=== PATIENT | male | born 1955 | race Caucasian/White ===

== ENCOUNTER 2018-09-12 06:03 | Emergency (ER) | payer OTHER, SELFPAY ==
[2018-09-12 06:12] VITALS: BP 113/85; PULSE 104; RESP 20; TEMP 36.8; O2SAT 92; BMI 35.4
--- NOTE | 2018-09-12 06:30 | DI.RAD.S_ITS ---
PROCEDURE: XR CHEST 1V INDICATIONS: worsening cough TECHNIQUE: One view of the chest was acquired. COMPARISON: None. FINDINGS: Surgical changes and devices: None. Lungs and pleura: Lungs are mildly atelectatic due to reduced inspiration. No pleural effusions or pneumothorax. Mediastinum: Mediastinal contours appear normal. Heart size is normal. Bones and chest wall: No suspicious bony lesions. Overlying soft tissues appear unremarkable. IMPRESSION: Normal for age, source of current worsening cough symptoms is not seen. Reduced inspiration. Dictated by: Ehsan Morales M.D. on 09/12/2018 at 8:00 Approved by: Ehsan Morales M.D. on 09/12/2018 at 8:01
[2018-09-12] MEDS: predniSONE 20 MG TABLET 60 MG PO (07:09)
[2018-09-12 07:10] VITALS: PULSE 88; RESP 16; O2SAT 93
[2018-09-12] MEDS: ALBUTEROL/IPRATROPIUM 3 ML AMPUL INH (07:13)
[2018-09-12] MEDS: AZITHROMYCIN 250 MG TABLET 500 MG PO (07:30)
[2018-09-12 07:37] VITALS: BP 115/70; PULSE 95; RESP 15; O2SAT 93
--- NOTE | 2018-09-13 09:22 | ED_ITS ---
HPI - SOB/Dyspnea General Chief Complaint: Shortness of Breath/Dyspnea Stated Complaint: thinks he has bronchitis or pneumonia Time Seen by Provider: 09/12/18 06:11 Source: patient Mode of arrival: ambulatory Limitations: no limitations History of Present Illness Patient comes emergency department stating he is concerned that he may have bronchitis or pneumonia. He states his symptoms started a little over week ago as just a cold , but that his cough has gotten increasingly worse over the last few days. Patient uses a CPAP machine at night, and feels as though the pressures just pushing slam down further into his lungs. He states he has been coughing up a lot of phlegm which is clear to slightly yellow. He states he has been short of breath. No chest pain. No fevers or chills. No nausea or vomiting. Patient is otherwise healthy, and does not have any other lung problems. He is not a smoker, and quit smoking about 40 years ago. Related Data Home Medications Medication Instructions Recorded Confirmed alprazolam 0.25 mg PO Q8H #0 03/18/16 alprazolam 0.5 mg PO QHS #0 03/18/16 aspirin 81 mg PO QDAY #0 03/18/16 finasteride 5 mg PO QDAY #0 tab 03/18/16 lisinopril 40 mg PO QDAY #0 03/18/16 Previous Rx's Medication Instructions Recorded albuterol sulfate 2 puff INHALATION Q4-6H PRN #6.7 09/12/18 gram azithromycin [Zithromax Z-Tiago] See Label Instructions .ROUTE 09/12/18 .COMPLEX #6 tab Allergies Allergy/AdvReac Type Severity Reaction Status Date / Time Sulfa (Sulfonamide Allergy Severe SWELLING Unverified 11/18/17 12:11 Antibiotics) [SULFA (SULFONAMIDE ANTIBIOTICS)] Review of Systems Constitutional Denies chills, Denies fever(s), Denies lethargy and Denies weakness Eyes Denies change in vision, Denies eye discharge, Denies irritation and Denies loss of vision ENT Ears, Nose, Mouth, and Throat: Denies change in voice, Denies neck pain and Denies sore throat Cardiovascular Denies chest pain, Denies irregular heart rhythm, Denies lightheadedness, Denies palpitations, Reports dyspnea and Denies orthopnea Respiratory Reports cough, Reports dyspnea and Denies wheezing Gastrointestinal Gastrointestinal: Denies abdominal pain, Denies change in bowel habits, Denies diarrhea, Denies nausea and Denies vomiting Genitourinary Denies hematuria, Denies flank pain, Denies urinary incontinence and Denies urinary urgency Musculoskeletal Denies neck pain Integumentary/Breasts Denies pruritus, Denies erythema, Denies rash and Denies wounds Neurologic Denies confusion, Denies loss of vision and Denies weakness Psychiatric Denies anxiety, Denies confusion, Denies depression, Denies homicidal ideation and Denies suicidal ideation Endocrine Denies palpitations Hematologic/Lymphatic Denies easy bruising Allergic/Immunologic Denies wheezing PFSH Medical History Obstructive sleep apnea (Acute) Surgical History No pertinent past surgical history (Acute) Social History Smoking Status: Former smoker Social History Smoking Status: Former smoker Exam Initial Vital Signs Initial Vital Signs: Vital Signs Temperature 98.2 F 09/12/18 06:12 Pulse Rate 104 H 09/12/18 06:12 Respiratory Rate 20 09/12/18 06:12 Blood Pressure 113/85 09/12/18 06:12 Pulse Oximetry 92 09/12/18 06:12 Const General: cooperative and well developed Nutritional Appearance: well nourished Orientation: alert, awake, oriented x3 and not confused [facility] Head: normocephalic and atraumatic Ears: external ears normal and TM's normal bilaterally Nose: external nose normal and No nasal discharge Face and sinus: sinuses nontender, face symmetric, no sinus tenderness and No dry mucous membranes Mouth: oral mucosae normal and moist mucous membranes Teeth and gingiva: dentition normal Throat: tonsils normal and uvula midline Eyes General: appearance normal, both eyes and all related structures Eyelids: eyelids normal Conjunctivae: conjunctivae normal Sclera: sclerae normal Pupils: PERRL EOM: EOM intact bilaterally Neck Neck: normal visual inspection, trachea midline, No lymphadenopathy, No midline deformity and No JVD Lymphatic: No lymphedema Chest Chest: normal inspection of the chest Resp Effort & Inspection: normal respiratory effort, able to speak in complete sentences, no respiratory distress and no use of accessory muscles Auscultation: crackles (Moderate, diffuse.), no rales, rhonchi (Mild, diffuse) and wheezes (Mild, diffuse) Cardio Rate: regular rate Rhythm: regular rhythm Heart Sounds: no click, no gallops, no murmurs and no rubs Pulses: normal peripheral pulses GI Inspection: non-distended Palpation: soft, no hepatosplenomegaly, No guarding, No pulsatile mass and No tender Auscultation: normal bowel sounds Back/Spine/Pelvis Back: No CVA tenderness Cervical Spine: cervical ROM normal and No pain with cervical ROM Thoracic/Lumbar Spine: thoracic and lumbar spine normal to inspection Skin General: no rashes or lesions noted, No jaundice and No petechiae Neuro General: alert, oriented x3, gait normal and no focal motor deficits Speech: speech normal Extrem General: full ROM, no clubbing, cyanosis or edema, no pedal edema and no calf tenderness Psych Appearance: well kempt Mental Status: mental status grossly normal Attitude: cooperative Thought Content: normal and suicidality Judgment: judgment good Course Course Narrative: The patient was not visibly dyspneic in the emergency department, but his lung sounds were definitely not clear. He was also noted on exam to have the urge to cough every time he exhaled, and I felt he would benefit from a nebulizer treatment. He was given a DuoNeb, as well as a dose of prednisone in the emergency department. I did not appreciate any abnormalities on his chest x-ray, but given his symptoms, lung findings, and uses CPAP, I felt he should be placed on antibiotics. He was started on Zithromax. We have discussed management of the symptoms at home, as well as the usual indications for return. I have given him a prescription for an inhaler and Zithromax. Orders Ordered: Discontinued Medications Albuterol/Ipratropium (Duoneb) 3 ml INH NOW ONE Stop: 09/12/18 06:31 Last Admin: 09/12/18 07:13 Dose: 3 ml Azithromycin (Zithromax) 500 mg PO NOW ONE Stop: 09/12/18 07:09 Last Admin: 09/12/18 07:30 Dose: 500 mg Prednisone (Deltasone) 60 mg PO NOW ONE Stop: 09/12/18 07:05 Last Admin: 09/12/18 07:09 Dose: 60 mg Vital Signs - 8 hr 09/12/18 06:12 Temperature 98.2 F Pulse Rate 104 H Respiratory Rate 20 Blood Pressure 113/85 Pulse Oximetry 92 MDM - SOB/Dyspnea Medical Records Attestation: I reviewed the patient's medical records. Imaging Data Chest x-ray: Attestation: I personally reviewed and interpreted this imaging study as follows: My impression: Negative Radiologist's impression: [address] [address] XRay Report Signed Patient: Alex Noguera JMR#: [id number] : 1955cct:[id number] Age/Sex: 63 / MDate of Service: 09/12/18 Loc: ED Accession Number: [id number] Procedure: XR chest 1V Ordering Provider: Ruth Simth MD PROCEDURE: XR CHEST 1V INDICATIONS: worsening cough TECHNIQUE: One view of the chest was acquired. COMPARISON: None. FINDINGS: Surgical changes and devices: None. Lungs and pleura: Lungs are mildly atelectatic due to reduced inspiration. No pleural effusions or pneumothorax. Mediastinum: Mediastinal contours appear normal. Heart size is normal. Bones and chest wall: No suspicious bony lesions. Overlying soft tissues appear unremarkable. IMPRESSION: Normal for age, source of current worsening cough symptoms is not seen. Reduced inspiration. Dictated by: Ehsan Morales M.D. on 09/12/2018 at 8:00 Approved by: Ehsan Morales M.D. on 09/12/2018 at 8:01 Discharge Plan Departure Patient Disposition: Home Clinical Impression: Bronchitis, Acute bronchitis with bronchospasm Discharge Date/Time: 09/12/18 08:11 Interventions: ED Discharge Assessment Last Done: 09/12/18 08:11 Instructions: DI for Acute Bronchitis Activity Restrictions/Additional Instructions: Your chest x-ray looks good. There is no evidence of pneumonia. You will be treated for bronchitis, as well as the spasming of your airways, which is causing you to wheeze and have difficulty breathing. Please follow up with your primary doctor if your symptoms continue for more than the next week. Prescriptions: New albuterol sulfate 90 mcg/actuation HFA aerosol inhaler 2 puff INHALATION Q4-6H PRN (Reason: shortness of breath or wheezing) Qty: 6.7 RF: 0 azithromycin [Zithromax Z-Tiago] 250 mg tablet See Label Instructions .ROUTE .COMPLEX Qty: 6 RF: 0 No Action finasteride 5 MG tablet 5 mg PO QDAY Qty: 0 RF: 0 lisinopril 20 MG tablet 40 mg PO QDAY Qty: 0 RF: 0 aspirin 81 MG tablet,delayed release (DR/EC) 81 mg PO QDAY Qty: 0 RF: 0 alprazolam 0.25 MG tablet 0.25 mg PO Q8H Qty: 0 RF: 0 alprazolam 0.25 MG tablet 0.5 mg PO QHS Qty: 0 RF: 0
== END 2018-09-12 08:11 | disposition home or self-care (01) ==
PROVIDERS: Emergency Provider Emergency Medicine; PCP Family Medicine
DX: J20.9 Acute bronchitis, unspecified (principal)
CPT/HCPCS: 71045; 94640; 99283

== ENCOUNTER → 2024-04-06 12:16 | Outpatient (CLI) | payer OTHER, SELFPAY ==
--- NOTE | 2024-04-06 12:19 | DI.ECHO.S_ITS ---
[facility]+ [facility] : : [address] : : [place] : : [address] : : Phone: [phone] Echocardiogram Report + + :Name: SAMARA TALAVERA Study Date: 04/06/2024 Height: 69 in : :[facility] ReadingLocation: Weight: 270 lb : : Gender: Male BSA: 2.3 m2 : :: 1955 Age: 68 yrs BP: 112/77 mmHg: :Reason For Study: HEART MURMUR : :Ordering Physician: SUDHAKAR, : :REGINA Performed By: Claudia Justice : :Referring: REGINA DE LA FUENTE : + + Interpretation Summary The ejection fraction is estimated to be 60-65%. Diastolic parameters suggest probable normal left ventricular diastolic function and normal filling pressures. The right ventricle is mildly dilated. The right ventricular systolic function is normal. There is mild mitral regurgitation. The aortic valve is bicuspid. There is severe aortic stenosis. There is mild tricuspid regurgitation. The right ventricular systolic pressure is estimated to be at least 29 mmHg based on an estimated right atrial pressure of 3 mm Hg. The ascending aorta is moderately enlarged, 4.8 cm. Result discussed with Pricila Brown PA-C. Procedure: A two-dimensional transthoracic echocardiogram with color flow and Doppler was performed. The study quality was technically adequate. There is no prior echocardiogram noted for this patient. The patient was in sinus rhythm with heart rates between 69-76 bpm during the exam. Left Ventricle: The left ventricle is normal in size and wall thickness. The ejection fraction is estimated to be 60-65%. Diastolic parameters suggest probable normal left ventricular diastolic function and normal filling pressures. Right Ventricle: The right ventricle is mildly dilated. The right ventricular systolic function is normal. Atria: The left atrial size is normal. Right atrial size is normal. There is no Doppler evidence for an interatrial shunt. Mitral Valve: There is moderate mitral annular calcification. The mitral valve leaflets are mildly calcified. There is mild mitral regurgitation. Aortic Valve: The aortic valve is bicuspid. The aortic valve is severely calcified. There is severely reduced leaflet mobility. There is severe aortic stenosis. The calculated aortic valve area is 0.65 cm2. The peak aortic velocity is 4.8 m/sec. The aortic valve mean gradient is 63 mmHg. There is mild to moderate aortic regurgitation. Tricuspid Valve: The tricuspid valve is normal in structure and function. There is mild tricuspid regurgitation. The right ventricular systolic pressure is estimated to be at least 29 mmHg based on an estimated right atrial pressure of 3 mm Hg. Pulmonic Valve: The pulmonic valve leaflets are thin and pliable; valve motion is normal. There is no pulmonic valvular regurgitation. Great Vessels: The aortic root is normal size. The ascending aorta is moderately enlarged. The IVC is of normal diameter and collapses greater than 50% with a sniff. This suggests a low right atrial pressure of 3 mm Hg. Pericardium/ Pleura There is no pericardial effusion. There is no pleural effusion. MMode/2D Measurements & Calculations LVIDd: 5.2 cm LVOT diam: 2.0 cm LVIDs: 3.4 cm Ao root diam: 3.5 cm FS: 35.2 % asc Aorta Diam: 4.8 cm IVSd: 1.0 cm Ao Arch Diam (Prox Trans): 3.3 cm LVPWd: 0.79 cm LV dupree. diameter/BSA (cm/m^2): 2.2 LV sys. diameter/BSA (cm/m^2): 1.4 LA A2 area: 23.9 cm2 RA long axis: 5.5 cm LA A4 area: 24.9 cm2 RA area: 21.0 cm2 LA length (vol): 6.9 cm RA vol: 68.1 ml LA vol: 73.8 ml RA : 29.0 ml/m2 LA vol index: 31.4 ml/m2 IVC diam: 1.0 cm RVD1 (basal): 4.8 cm RVD2 (mid): 3.9 cm TAPSE: 2.9 cm Doppler Measurements & Calculations Ao V2 max: 483.6 cm/sec LVOT Max Sukh: 89.1 cm/sec Ao V2 mean: 377.2 cm/sec LV V1 max P.2 mmHg Ao max P.7 mmHg LV V1 VTI: 21.8 cm Ao mean P.7 mmHg OCHOA(I,D): 0.61 cm2 Ao V2 VTI: 115.4 cm OCHOA(V,D): 0.59 cm2 sev ratio: 0.19 OCHOA indexed to BSA (cm^2/m^2): 0.26 AI P1/2t: 705.0 msec AI dec slope: 179.5 cm/sec2 MV E max sukh: 94.9 cm/sec TR max sukh: 258.4 cm/sec MV A max sukh: 90.6 cm/sec TR max P.7 mmHg MV E/A: 1.0 PA V2 max: 108.3 cm/sec Med Peak E' Sukh: 7.4 cm/sec PA V2 mean: 69.3 cm/sec E/E' med: 12.8 PA mean P.2 mmHg Lat Peak E' Sukh: 7.3 cm/sec PA pr(Accel): 34.5 mmHg E/E' lat: 13.0 E/e' average: 12.9 MV dec time: 0.28 sec SV(LVOT): 69.8 ml Reading Physician:03:41 PM
== END ==
PROVIDERS: PCP Internal Medicine; Referring Provider Internal Medicine; Visit Provider Internal Medicine
DX: I08.3 Combined rheumatic disorders of mitral, aortic and tricuspid valves (principal); I77.810 Thoracic aortic ectasia; R01.1 Cardiac murmur, unspecified
CPT/HCPCS: 93306